=== PATIENT | male | born 1985 | race Caucasian/White ===

== ENCOUNTER 2016-11-18 15:32 | Emergency (ER) | payer OTHER ==
[~2016-11-18] VITALS: Ht 152.4 cm; Wt 80.5 kg
[~2016-11-18 15:32] MED LIST: ELEC100080 PO
[2016-11-18 15:40] VITALS: Ht 152.4 cm; Wt 80.5 kg
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
[2016-11-18] MEDS ORDERED: IBUP-1542 PO (16:34)
[2016-11-18] MEDS ORDERED: CARI350T PO (16:35)
== END 2016-11-18 16:53 | disposition home or self-care (01) ==
LOC: FTE 15:32
DX: S39.012A Strain of muscle, fascia and tendon of lower back, initial encounter (principal); V03.19XA Pedestrian with other conveyance injured in collision with car, pick-up truck or van in traffic accident, initial encounter
CPT/HCPCS: 99283

== ENCOUNTER 2016-11-20 17:58 | Emergency (ER) | payer OTHER ==
[~2016-11-20] VITALS: Ht 170.2 cm; Wt 82.0 kg
[~2016-11-20 17:58] MED LIST changes: +CARI350T PO; +IBUP-1542 PO
[2016-11-20 18:02] VITALS: Ht 170.2 cm; Wt 82.0 kg
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
[2016-11-20 22:36] LABS: ADD UMIC YES; URINE BILIRUBIN (Dip) NEGATIVE (NEGATIVE); URINE BLOOD (Dip) 3+ (NEGATIVE); URINE GLUCOSE (Dip) NEGATIVE (NEGATIVE); URINE KETONES (Dip) NEGATIVE (NEGATIVE); URINE LEUKOCYTE ESTERASE (Dip) NEGATIVE (NEGATIVE); URINE NITRITE (Dip) NEGATIVE (NEGATIVE); URINE TOTAL PROTEIN (Dip) NEGATIVE (NEGATIVE); URINE UROBILINOGEN (Dip) 0.2 E.U./dL (0.1-1.0)
[2016-11-20 22:44] LABS: URINE COLOR YELLOW (YELLOW)
[2016-11-20 22:46] LABS: BACTERIA,URINE FEW; MUCUS,URINE MANY; URINE RBCS 25-50 /HPF (0)
--- NOTE | 2016-11-20 23:52 | RADRPT ---
PROCEDURE: US Scrotum. CLINICAL INDICATION: Scrotal injury. TECHNIQUE: Multiple sonographic images of the scrotal region were obtained utilizing a linear arra y transducer with grayscale and color-flow and a Doppler imaging. The images were reviewed on a high -resolution PACS workstation. COMPARISON: No prior studies are available for comparison. FINDINGS: Right hemiscrotum: Testis: Normal in size, morphology and without mass. There is normal blood flow. Testicular size is estimated at 4.7 x 3.3 x 2.5 centimeters. Epididymis: No abnormalities are identified, normal size and blood flow is demonstrated. Hydrocele: Small and simple. Varicocele: None identified. Scrotal skin: Not thickened, no shadowing foci to suggest gas are present. There is no evidence of hematoma. Left hemiscrotum: Testis: Normal in size, morphology and without mass. There is normal blood flow. Testicular size i s estimated at 3.6 x 2.8 x 2.6 centimeters. Epididymis: Large simple epididymal cyst of 2.4 x 1.9 x 1.2 cm. There is normal blood flow without evidence of epididymitis. Hydrocele: Small and simple. Varicocele: None identified. Scrotal skin: Not thickened.There is no evidence of hematoma RPTAT:HJJR IMPRESSION: 1. Sonographically normal testes bilaterally without evidence of acute post traumatic scrotal abnor mality. 2. Large simple left epididymal cyst of 2.4 x 1.9 x 1.2 cm. 3. Small bilateral simple hydroceles. Physician Jeffrey Date Time Electronically viewed and signed by Physician Jeffrey on 11/20/2016 23:52 /
[2016-11-20] MEDS ORDERED: CARI350T PO (23:56)
[2016-11-21] MEDS ORDERED: TRAM50TA2 PO (00:19)
== END 2016-11-21 00:29 | disposition home or self-care (01) ==
LOC: FTE 17:58
DX: R31.9 Hematuria, unspecified (principal); R30.0 Dysuria; R10.9 Unspecified abdominal pain; F17.210 Nicotine dependence, cigarettes, uncomplicated
CPT/HCPCS: 76870; 81001; 87591; Z7502; 81003